=== PATIENT | female | born 1930 | race Caucasian/White ===

== ENCOUNTER 2016-11-08 07:24 | Inpatient (IN) | payer MEDICARE, OTHER ==
[~2016-11-08] VITALS: Ht 160 cm; Wt 67.9 kg
--- NOTE | ~2016-11-08 | HP ---
PATIENT'S NAME: CHRISTAL VERAS [facility] AGE: 86 Y [address] ROOM: [place] [address] LOCATION: GPCU ADMIT DATE: 11/08/2016 History & Physical DISCHARGE DATE: FAMILY PHYSICIAN: Casey Cordoba MD ATTENDING PHYSICIAN: Noé SAUCEDO DATE OF SERVICE: CHIEF COMPLAINT: Severe sepsis. HISTORY OF PRESENT ILLNESS: The patient is an 86-year-old female with a past medical history of stroke with right residual deficit, hypertension, hyperlipidemia, hard of hearing, and dementia who presents here from a skilled nursing with a fall. The patient was found on the floor today and was brought here to our emergency department for further evaluation. On initial evaluation, the patient is hard of hearing and was found to be somewhat confused. Initial workup in the ED shows elevated leukocytosis, possible right tibia distal fracture, normal CT head, elevated lactate, elevated creatinine, and possible UTI from the UA. On interview, the patient is alert and oriented x1. Not able to give adequate information. Most of the information was gathered from her son who was at bedside. He reports that the patient is a DNR/DNI and was found down today in the skilled nursing. He reports that at baseline, the patient is somewhat forgetful and uses a walker to ambulate. The son reports that she is more confused than usual. PAST MEDICAL HISTORY: Hypertension, hyperlipidemia, recent history of stroke with right residual deficits, dementia, and hard of hearing. PAST SURGICAL HISTORY: There is no surgical history. SOCIAL HISTORY: The patient lives in a skilled nursing. No history of drinking or smoking. FAMILY HISTORY: Unable to acquire due to the patient's poor mentation. MEDICATIONS: Currently being reconciled. REVIEW OF SYSTEMS: Unable to obtain review of systems as the patient has poor mentation. PATIENT'S NAME: CHRISTAL VERAS [facility] AGE: 86 Y [address] ROOM: [place] [address] LOCATION: GPCU ADMIT DATE: 11/08/2016 History & Physical DISCHARGE DATE: FAMILY PHYSICIAN: Casey Cordoba MD ATTENDING PHYSICIAN: Noé SAUCEDO PHYSICAL EXAMINATION: VITAL SIGNS: Temperature 96.4, blood pressure 133/63, heart rate of 95, respiratory rate of 17, and saturating 98% on room air. HEAD: Normocephalic, atraumatic. GENERAL APPEARANCE: The patient is alert and awake, appears in no acute distress. The patient follows simple commands. The patient is alert and oriented x1 only to self. NOSE: No nasal discharge. MOUTH: Oral dry mucosa. EARS: No ear discharge. CHEST: Clear to auscultation bilaterally. HEART: Regular rate and rhythm. No murmurs, rubs, or gallops. ABDOMEN: Soft, nontender, and nondistended. Bowel sounds present. SKIN: Warm to touch. MUSCULOSKELETAL: Right ankle swelling. DUCO POLISHER: The patient is alert and oriented x1, follows simple commands. Lower extremity weakness, bilateral, 3/5. Sensory is somewhat grossly intact. Right upper extremity strength 4/5. LABORATORY DATA: Lactate 5.1. Troponin 0.132. White blood cell count of 20, hemoglobin 14, platelets of 179. BUN of 41, creatinine of 2.4, sodium of 143, potassium of 4.4, CO2 of 21. Total bilirubin of 0.9. INR 1.04. UA shows positive leukocytosis with pyuria. Prolactin of 1.08. EKG shows sinus rhythm with somewhat peaked T-waves on V2 to V4. IMAGING DATA: CT lumbar shows no acute findings. CT thoracic shows no acute findings. CT cervical shows no acute findings. CT brain shows no acute findings. X-ray, no acute cardiopulmonary findings. Pelvis x-ray shows no acute fracture. Right ankle x-ray shows possible tibial fracture, distal. ASSESSMENT AND PLAN: 1. Severe sepsis. The patient is presenting with severe sepsis with elevated leukocytosis, elevated lactate, and a possible source of urine infection with pyuria, and also acute kidney injury. Etiology most likely is secondary to urinary tract infection with blood culture pending. The patient is currently receiving 30 mL/kg bolus. We will start 75 mL an hour of normal saline afterwards. We will start the patient on ceftriaxone. Urine culture and blood culture pending. 2. Urinary tract infection. Please see problem #1. 3. Acute encephalopathy. Etiology most likely secondary to urinary tract infection; however, the patient has also history of multiple strokes and PATIENT'S NAME: CHRISTAL VERAS [facility] AGE: 86 Y [address] ROOM: [place] [address] [facility] ADMIT DATE: 11/08/2016 History & Physical DISCHARGE DATE: FAMILY PHYSICIAN: Casey Cordoba MD ATTENDING PHYSICIAN: Noé SAUCEDO unable to get full neurological examination due to the patient's mentation. We will acquire MRI of the head to further rule out stroke. Continue aspirin and Lipitor. 4. Elevated troponin. Etiology most likely secondary to ylm-CA-qapvsyr elevation myocardial infarction, type 2. We will trend troponin. The EKG shows some peak T-waves concerning for ischemia. However, the patient denies any chest pain and family does not want any aggressive treatment including cardiac catheterization. We will trend troponin for now, treat the underlying etiology of acute kidney injury and urinary tract infection. We will acquire echocardiogram. We will treat the patient medically. 5. Possible distal right tibial fracture. We will get a CT of the right lower extremity. To be splinted in the emergency department. Depending on what we find, we will consider orthopedic consultation. 6. Lactic acidosis, most likely secondary to severe sepsis. We will trend lactate level. Greater than 70 minutes was spent on the patient admission. Greater than 50% of the time was spent on direct care. Discussion was made with RAN, his son. All questions were answered with satisfaction. The patient is a DNR/DNI and family wants no aggressive treatment. We will admit the patient for severe sepsis secondary to urinary tract infection. On admission, code status, DNR/DNI. NOÉ SAUCEDO MD DA/modl /[id number] D: T: HISTORY & PHYSICAL
--- NOTE | ~2016-11-08 | CON ---
PATIENT'S NAME: CHRISTAL VERAS [facility] AGE: 86 Y [address] ROOM: [place] [address] LOCATION: GPCU ADMIT DATE: 11/08/2016 Consultation DISCHARGE DATE: FAMILY PHYSICIAN: Casey Cordoba MD ATTENDING PHYSICIAN: Noé SAUCEDO REFERRING PHYSICIAN: RONAK REDDING MD CHIEF COMPLAINT: Right ankle pain. HISTORY OF PRESENT ILLNESS: This is an 86-year-old female who reportedly woke up on the floor at the nursing facility where she resides. Her daughter is present, states it was a nonwitnessed event. The patient is unable to tell us what may have precipitated this fall. The patient has a medical history of stroke with residual right side deficits and weakness. She is hard of hearing and suffers from hypertension, dyslipidemia, dementia. PAST SURGICAL HISTORY: Unable to obtain from the patient. MEDICATIONS: Reviewed. PHYSICAL EXAMINATION: VITAL SIGNS: Reviewed. GENERAL: The patient answers questions appropriately if you speak loud enough to where she can hear you. HEENT: Head is normocephalic, atraumatic. NECK: Supple. Trachea midline. EXTREMITIES: She moves bilateral upper extremities at the shoulder, wrist, and elbow without pain. She recently just got blood drawn and was complaining of pain from the needle stick of blood draws, however, that has resolved. She has pain to her right lower extremity at the ankle. There are no open wounds or injury. RADIOGRAPHS: X-ray showed nondisplaced ankle fracture involving the medial and lateral malleolus. IMPRESSION AND PLAN: She was placed in a splint with soft compartments. I am able to move both hips. She is able to move actively bilateral upper extremities and the left lower extremity without pain. There is no effusion about her knees. No tenderness around her ribs, thorax, and clavicles. She has had elevated leukocytosis with concerns for infection. I discussed with the patient and PATIENT'S NAME: CHRISTAL VERAS [facility] AGE: 86 Y [address] ROOM: [place] [address] LOCATION: GPCU ADMIT DATE: 11/08/2016 Consultation DISCHARGE DATE: FAMILY PHYSICIAN: Casey Cordoba MD ATTENDING PHYSICIAN: LEWIS,Dagmawe daughter at the bedside that as long she stays nonweightbearing we can place her in a CAM boot or cast to the right lower extremity. It will take 6 to 8 weeks for this fracture to heal. She will need assistance with ambulation, showers, and ADLs. Recommend aggressive Pulmonary care and DVT prevention with SCDs, KIMBERLEE esparza, incentive spirometry. She understands she will need assistance and nonweightbearing, okay to toe-touch with right lower extremity. I will see her in the office in two weeks with x-rays. NORIS BAJWA DO PH/modl /[id number] d: 11/09/16 0106 t: 11/12/16 1832, CONSULTATION REPORT
--- NOTE | ~2016-11-08 | ER ---
[facility] AGE: 86 Y [address] ROOM: [place] [address] LOCATION: GPCU ADMIT DATE: 11/08/2016 ER/Outpatient Report DISCHARGE DATE: FAMILY PHYSICIAN: Casey Cordoba MD ATTENDING PHYSICIAN: Noé RANGEL Time of Arrival: 0724 hours. Time of Evaluation: 0724 hours. IDENTIFICATION: An 86-year-old female. CHIEF COMPLAINT: Fall. HISTORY OF PRESENT ILLNESS: The patient is an 86-year-old female who resides at [facility]. She was found at 06:30 a.m. after an unwitnessed fall. She had pushed her Life Alert, but they were not certain what time she had fallen or how she was fallen. She is hard of hearing and seems somewhat confused, but has no history of dementia. She was complaining of back pain to the Paramedics. She did not speak much to me. She was fairly quiet and again seemed somewhat confused. She did agree that she had back pain. She denied pain anywhere else. ALLERGIES: NO KNOWN DRUG ALLERGIES. CURRENT MEDICATIONS: 1. Tylenol. 2. Amlodipine. 3. Atorvastatin. 4. Lisinopril. 5. Milk of magnesia. 6. Oyster Shell. 7. PreserVision. 8. Vitamin D. MEDICAL PROBLEMS: Hypertension, hyperlipidemia, previous stroke with right-sided weakness, osteoarthritis, chronic pain, and hard of hearing. PRIOR SURGERIES: Unknown. PATIENT'S NAME: R[facility]O [facility] AGE: 86 Y [address] ROOM: [place] [address] LOCATION: GPCU ADMIT DATE: 11/08/2016 ER/Outpatient Report DISCHARGE DATE: FAMILY PHYSICIAN: Casey Cordboa MD ATTENDING PHYSICIAN: Noé RANGEL SOCIAL HISTORY: The patient resides at [facility]. Tobacco use, denies. Alcohol use, denies. Drug use, denies. FAMILY HISTORY: Unable to obtain from the patient. REVIEW OF SYSTEMS: Unable to obtain from the patient. PHYSICAL EXAMINATION: VITAL SIGNS: Weight 64.9 kg, blood pressure 133/63, pulse 95, respirations 17, temperature 96.4, and saturations 98% on room air. GENERAL: An 86-year-old female, in no acute distress. HEENT: Head: Normocephalic and atraumatic. Ears: TMs translucent both ears. Eyes: Pupils equal and reactive to light and accommodation. Extraocular movements intact. Nose: Mucosa pink. No lesions. Mouth: No lesions. Mucous membranes are dry. Pharynx benign. NECK: Supple. No lymphadenopathy. No nuchal rigidity. She does have some tenderness to palpation of her cervical spine, no palpable deformities. Also, some tenderness to palpation of her lumbar spine, again no palpable deformities. LUNGS: Clear to auscultation. No rhonchi, wheezes, or rales. HEART: Regular rate and rhythm. No murmur, rub, or gallop. ABDOMEN: Bowel sounds present, soft, nondistended, and nontender. SKIN: [place], warm, and dry. No lesions or rashes noted. She does have some ecchymosis of her right ankle along with some soft tissue swelling. PELVIS: She has no tenderness to pelvic rock. UPPER EXTREMITIES: No bony tenderness noted. LOWER EXTREMITIES: Left lower extremity: Full range of motion. No deformities noted. Right lower extremity: She has some swelling of her right ankle laterally along with ecchymosis noted medially and she is tender to palpation. NEURO: The patient is alert. She is disoriented. Cranial nerves II through XII grossly intact. Motor strength: Upper extremities appear to be equal and 5/5. Lower extremities: Weakness in her right lower extremity greater than her left lower extremity. Sensation does appear to be intact. EMERGENCY DEPARTMENT COURSE: An IV was initiated, normal saline at 75 mL/h. LABORATORY DATA AND X-RAYS: EKG at 0729 hours showed normal sinus rhythm at 90 beats per minute, Q-waves noted in leads III and F, peaked T-waves noted in the septal leads, and this is changed when compared to prior EKG dated 11/25/2015. Procalcitonin PATIENT'S NAME: CHRISTAL VERAS [facility] AGE: 86 Y [address] ROOM: [place] [address] LOCATION: GPCU ADMIT DATE: 11/08/2016 ER/Outpatient Report DISCHARGE DATE: FAMILY PHYSICIAN: Casey Cordoba MD ATTENDING PHYSICIAN: Noé RANGEL elevated at 1.08. Sodium 143, potassium 4.4, chloride 108, CO2 of 21, BUN 41, creatinine elevated at 2.4 and this is elevated when compared to previous creatinine 1 year ago when it was 0.7, blood sugar 124, AST 56, magnesium 2.3, CPK 1464, CK-MB 38.9, troponin I 0.132. Lactate elevated at 5.1, 3-hour lactate elevated at 5.2. Repeat EKG at 0915 hours showed normal sinus rhythm with PACs, 91 beats per minute, peak T-waves in the septal leads, Q-waves in leads III and F, no significant change when compared to earlier EKG today. Repeat cardiac enzymes showed CPK 2846, CK-MB 75.4, and troponin I 0.142. UA cath; specific gravity 1.025, pH 5, 5 to 10 white blood cells, 2 to 5 red blood cells, 0 to 2 epithelial cells. Culture and sensitivity pending. Hemoglobin 14.7, hematocrit 43.9, platelets 179, and white blood cell count 20.1 with 88% neutrophils. INR 1.04. Blood cultures x2 have been drawn and those results are pending. Head CT showed no acute process, pending Radiology over-read. Cervical spine CT showed no acute findings. Thoracic spine CT showed degenerative changes, normal for age. Lumbar spine CT, no acute findings per Radiology. Chest x-ray, 1 view, no acute process, pending Radiology over-read. Pelvis x-ray, no acute fracture, pending Radiology over- read. X-ray of her right ankle revealed some soft tissue swelling and a subtle cortical irregularity in the distal tibia. CT scan of her right ankle reveals markedly osteopenic bones, incomplete nondisplaced fracture involving the anteromedial cortex of the distal metaphysis of the tibia, minimally displaced fracture at the medial malleolus of the distal tibia, comminuted nondisplaced fracture at the distal fibula, soft tissue swelling at the ankle per Dr. Murrieta, radiologist. IMPRESSION AND PLAN: 1. Ubt-LP-eukjslevc myocardial infarction. The patient does have hyperacute T-waves. In discussion with the patient's son, she is a DNR/DNI and they want conservative management, so she will be admitted by the hospitalist and have serial EKG and enzymes. 2. Sepsis. The patient meets severe sepsis criteria. Sepsis orders were initiated in the emergency room. Fluid bolus 30 mL/kg over 3 hours was given in the emergency room. The patient was given ceftriaxone 1 gram IV for suspected urinary tract infection as the source. 3-hour lactate has been ordered and Dr. Rangel evaluated the patient in the emergency room. 3. Urinary tract infection. IV Rocephin as noted above. 4. Acute confusion. I am not aware of the patient's baseline as far as her confusion. Head CT shows no acute findings. She will continue to be monitored. 5. Right distal tibia and fibula fracture, nondisplaced. The patient was placed in a posterior splint by myself in the emergency room and Dr. Lucas will provide consultation. The patient arrived to the emergency room at 0724 hours, remained in the emergency room until she was taken to PCU at 1235 hours. 50 minutes of critical care was provided in the emergency room and the patient was placed in a short leg posterior PATIENT'S NAME: CHRISTAL VERAS [facility] AGE: 86 Y [address] ROOM: [place] [address] LOCATION: GPCU ADMIT DATE: 11/08/2016 ER/Outpatient Report DISCHARGE DATE: FAMILY PHYSICIAN: Casey Cordoba MD ATTENDING PHYSICIAN: Noé RANGEL fiberglass splint by myself. CHAZ RIOS MD CAR/modl /[id number] d: 11/09/16 0006 t: 11/20/16 0833, OUTPATIENT REPORT
--- NOTE | ~2016-11-08 | CON ---
PATIENT'S NAME: CHRISTAL VERAS [facility] AGE: 86 Y [address] ROOM: [place] [address] LOCATION: GPCU ADMIT DATE: 11/08/2016 Consultation DISCHARGE DATE: FAMILY PHYSICIAN: Casey Cordoba MD ATTENDING PHYSICIAN: Noé SAUCEDO DATE OF CONSULTATION: 11/09/2016 REFERRING PHYSICIAN: RONAK REDDING MD TIME: 3:40 p.m. CHIEF COMPLAINT: Stroke. HISTORY OF PRESENT ILLNESS: This is an 86-year-old female, who lives in an assisted living facility. She has a prior medical history of stroke with some right-sided weakness. Other history includes hypertension, hyperlipidemia, and dementia. The patient was found on the floor today at the shelter and was brought to our emergency department for further evaluation. On initial evaluation, the patient is hard- of-hearing and confused. She was worked up in the ED and noted to have elevated leukocytosis and a possible right tibia distal fracture. The CT of her head was normal at that time. She had an elevated lactate and elevated creatinine and a possible UTI. At that time, an MRI was ordered of her head which did show a left caudate nucleus small area of diffusion-weighted imaging. 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 The patient's information was gathered from the chart, the patient, and her grandson who is at the bedside. PAST MEDICAL HISTORY: 1. Hypertension. 2. Hyperlipidemia. 3. Stroke with right residual deficits. 4. Dementia. 5. Hmgb-eo-xgujcqj. PAST SURGICAL HISTORY: No surgical history. SOCIAL HISTORY: The patient lives in a shelter. She does not smoke or drink. FAMILY HISTORY: The patient is unable to remember what her parents from except they [facility] 86 Y [address] ROOM: [place] [address] LOCATION: GPCU ADMIT DATE: 11/08/2016 Consultation DISCHARGE DATE: FAMILY PHYSICIAN: Casey Cordoab MD ATTENDING PHYSICIAN: Noé SAUCEDO from old age. MEDICATIONS: Medications are on the MAR and were reviewed by me. Of note, the patient is not on any antithrombotic therapy. REVIEW OF SYSTEMS: All systems were reviewed and are negative except as mentioned in the HPI. PHYSICAL EXAMINATION: VITAL SIGNS: Temperature 96.4, blood pressure 136/60, heart rate of 94, respiratory rate of 16, saturating 98% on room air. HEAD: Normocephalic and atraumatic. GENERAL APPEARANCE: The patient is alert, awake, and cooperative. She is in no acute distress. CHEST: Clear to auscultation bilaterally. HEART: Regular rate and rhythm with no murmurs, rubs, or gallops. She does have an occasional PVC. ABDOMEN: Soft, nontender, and nondistended. NEUROLOGICAL: The patient is oriented to self and place. She does follow commands. She is slps-md-qakxgbh, so instructions may need to be repeated. Her right leg is cast, so it is difficult to elicit strength in that right leg. However, her left leg seems strong. Her bilateral upper extremities are strong. I did see the patient get up with physical therapy and her gait was quite equal and wide based. As far as her stroke scale goes, level of consciousness 1A - 0, 1B - 0, 1C - 0, 2. Best gaze, normal - 0, 3. Visual - 0, 4. Facial palsy - 0, motor arm left - 0, motor arm right - 0, motor leg left - 0, motor leg right - 0, limb ataxia - 0, sensory - 0, best language - 0, dysarthria - 0, and extinction and inattention - 0. There is some slight dysmetria with her right hand. DIAGNOSTIC DATA: Her MRI shows a 1.5 cm acute ischemic infarct in the left caudate nucleus. There is a chronic left thalamic hemorrhage infarct with hemosiderin staining, and mild encephalomalacia. Some chronic brain atrophy. IMPRESSION AND PLAN: This is an 86-year-old who presented with a septic picture, whom we incidentally found a stroke on her MRI. I am uncertain as to why she was not on any antithrombotic after having a previous stroke, but suspect the hemorrhage in her thalamic area might explain that. In any event, it is safe to put her on 81 mg of aspirin. She did refuse to have her LDL drawn, but we can place the patient on atorvastatin 80. Her echocardiogram did show a left atrium that is mildly enlarged. Carotid studies were not ordered on this patient. It was discussed with the family, and even though they may find some PATIENT'S NAME: CHRISTAL VERAS [facility] AGE: 86 Y [address] ROOM: [id number] [place] [address] LOCATION: [facility] ADMIT DATE: 11/08/2016 Consultation DISCHARGE DATE: FAMILY PHYSICIAN: Casey Cordoba MD ATTENDING PHYSICIAN: Noé SAUCEDO carotid disease, she would not want to have surgery. Therefore, we will treat with aspirin 81 mg. the patient is already working with Physical Therapy and Occupational Therapy, and should have a very good recovery from this. We would like to thank you for the opportunity to participate in this patient's care. The plan of care was discussed with the hospitalist team. The plan of care was also discussed with the patient and her grandson and questions were answered appropriately. The time of this encounter with Dr. Baig and examining the chart and the patient was 30 minutes. MORGAN ANAYA APRN FOR VIRGILIO BAIG MD PP/bakaril /[id number] ATTESTATION: I have seen and evaluated the patient with GWEN Brian. This includes taking history and perfomring physical exam via telemedicine cart. We have discussed the assessment and plan as outlined above, and discussed that plan in detail with the patient. d: 11/09/16 2321 t: 11/27/16 0924, CONSULTATION REPORT
--- NOTE | ~2016-11-08 | ECHO ---
Transthoracic Echocardiography Report (TTE) Demographics Patient Name CHRISTAL VERAS Date of Study 11/10/2016 Patient Number [id number] Visit Number [id number] Date of 1930 Room Number G6315 Gender Female Number Age 86 year(s) Referring Trung Whyte Blood Bank Worker Charlotte Razo RVT, Physician MD MELANIE Umanzor Physician Interpreting Trung Whyte Oil Distributor Tender Physician MD Supervising Ordering Trung Whyte MD/MLP Physician MD Nurse Stress Director Of [employer] Conclusions Summary Limited echo for bubble study. There is no evidence of a patent foramen ovale by color Doppler or saline bubble study. Procedure Type of Study TTE procedure:Echo Limited w/ Contrast. Procedure Date Date: 11/10/2016 Start: 10:59 AM Study Location: Inpatient Portable Technical Quality: Adequate visualization Indications:Elevated Troponin. Appropriate Use Criteria: 4 Patient Status: Routine Contrast Medium: Bubble Study. Rhythm: NSR HR: 71 bpm BP: 184/110 mmHg Contractility Score LV regional wall motion:(0-Non visualized 1-Normal 2-Hypokinesis 3-Akinesis 4-Dyskinesis 5-Aneurysm) Signature dtt: Isabell Nino dtd: 11/10/16 1059 Physician Self Edit
--- NOTE | ~2016-11-08 | ECHO ---
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 Summary The estimated left ventricular ejection fraction is 70-75%. Mild concentric left ventricular hypertrophy. Diastolic assessment reveals Grade I diastolic dysfunction. Elevated velocities noted in left ventricle mid cavity. The left atrium is moderately dilated by LA volume index measurement. Mild mitral regurgitation by color Doppler. Moderate mitral annular calcification. Moderate tricuspid regurgitation by color Doppler. There is severe pulmonary hypertension. The pulmonary pressure (RVSP) is 62 mmHg. The ascending aorta appears mildly dilated. The maximum diameter measures 3.7 cm. Procedure Type of Study TTE procedure:2D Echocardiogram. Procedure Date Date: 11/08/2016 Start: 04:05 PM Study Location: Inpatient Portable Technical Quality: Adequate visualization Indications:Elevated Troponin. Appropriate Use Criteria: 9 Patient Status: Routine Height: 65 inches HR: 85 bpm BP: 160/80 mmHg M-Mode/2D Measurements LV Diastolic Dimension: 2.81 cm LV Systolic Dimension: 1.11 cm LV Septum Diastolic: 1.13 cm LV PW Diastolic: 1.26 cm Cardiac Output: 8 l/min LA Dimension: 2.4 cm RV Diastolic Dimension: 2.8 cm LA volume: 43 ml LVOT: 1.8 cm LVOT VTI: 37 cm RV Base: 2.74 cm LV Stroke volume: 94.11 ml RV Mid: 1.77 cm RV Length: 5.94 cm TAPSE: 3.17 cm TDI-S': 16.1 cm/s Doppler Measurements AV Peak Velocity: 1.81 m/s MV Peak E-Wave: 1.03 m/s AV Peak Gradient: 13.1 mmHg MV Peak A-Wave: 1.33 m/s AV Mean Gradient: 11 mmHg MV E/A Ratio: 0.77 LVOT Peak Velocity: 1.74 m/s MV P1/2t: 88 msec TR Gradient:51.84 mmHg PV Peak Velocity: 1.08 m/s Estimated RAP:8 mmHg PV Peak Gradient: 4.67 mmHg Estimated RVSP: 60 mmHg Estimated PASP: 59.84 mmHg Findings Left Ventricle Mild concentric left ventricular hypertrophy. Diastolic assessment reveals Grade I diastolic dysfunction. Hyperdynamic LV systolic performance. Elevated velocities noted left ventricle mid cavity. Right Ventricle Normal right ventricle structure and function. Left Atrium The left atrium is moderately dilated by LA volume index measurement. Right Atrium Normal right atrial size. Mitral Valve Mild mitral regurgitation by color Doppler. Moderate mitral annular calcification. Aortic Valve The aortic valve is moderately sclerotic. Tricuspid Valve Moderate tricuspid regurgitation by color Doppler. There is severe pulmonary hypertension. The pulmonary pressure (RVSP) is 62mmHg. Pulmonic Valve Normal pulmonic valve structure and function. Pericardial Effusion No evidence of pericardial effusion. Miscellaneous The ascending aorta appears mildly dilated. The maximum diameter measures 3.7 cm. Pleural Effusion No evidence of pleural effusion. Contractility Score LV regional wall motion:(0-Non visualized 1-Normal 2-Hypokinesis 3-Akinesis 4-Dyskinesis 5-Aneurysm) Signature dtt: Rizwan Bishop dtd: 11/08/16 4830 Physician Self Edit
--- NOTE | ~2016-11-08 | ENPV ---
Carotid Duplex Study Demographics Patient Name CHRISTAL VERAS Date of Study 11/09/2016 Patient Number [id number] Gender Female Date of 1930 Age 86 Visit Number [id number] Height 65 Accession Number [id number] Weight Room Number G6315 BSA BMI Referring Adalid Nicolas MD Interpreting Mark Stuart MD Physician Juan Carlos Umanzor Physician Physician Ordering Juan Carlos Umanzor Motel Keeper Physician Director Of Psychology Teddy [facility], [facility] Conclusions Summary The right internal carotid artery has mild, 1-39%, plaque and stenosis. The left internal carotid artery has mild, 1-39%, plaque and stenosis. The bilateral vertebral arteries are patent and antegrade. The bilateral subclavian arteries are patent and biphasic. Procedure Type of Study: Cerebral:Carotid, Carotid Doppler Bilateral. Indications for Study:Stroke. Appropriate Use Criteria:9 Blood Pressure:Right arm 140/63 mmHg.Left arm 142/69 mmHg. Patient Status:Routine. Study Location:Inpatient Portable. Technical Quality:Adequate visualization. Velocities are measured in cm/s ; Diameters are measured in cm Carotid Right Measurements Carotid Left Measurements + +--------+--------+ + + + +--------+ --------+ + + !Location !PSV !EDV !Angle !%Stenosis ! !Location !PSV ! EDV !Angle !%Stenosis ! + +--------+--------+ + + + +--------+ --------+ + + !Prox CCA !97 !22 !46 ! ! !Prox CCA !87 ! 18 !60 ! ! + +--------+--------+ + + + +--------+ --------+ + + !Dist CCA !115 !18 !60 ! ! !Dist CCA !76 ! 18 !60 ! ! + +--------+--------+ + + + +--------+ --------+ + + !Prox ICA !47 !16 !60 ! ! !Prox ICA !55 ! 21 !56 ! ! + +--------+--------+ + + + +--------+ --------+ + + !Dist ICA !58 !21 !56 ! ! !Dist ICA !59 ! 19 !52 ! ! + +--------+--------+ + + + +--------+ --------+ + + !Prox ECA !87 ! !44 ! ! !Prox ECA !128 ! !56 ! ! + +--------+--------+ + + + +--------+ --------+ + + !Vertebral !42 ! !46 ! ! !Vertebral !74 ! !58 ! ! + +--------+--------+ + + + +--------+ --------+ + + !Subclavian !97 ! !46 ! ! !Subclavian !108 ! !46 ! ! + +--------+--------+ + + + +--------+ --------+ + + - Add'l Measurements:ICAPSV/CCAPSV 0.6.ICAEDV/CCAEDV 0.94. - Add'l Measurements:ICAPS V/CCAPSV 0.68.ICAEDV/CCAEDV 1.14. Signature dtt: CHERI MAGAÑA: 11/09/16 0851 Physician Self Edit
--- NOTE | ~2016-11-08 | CON ---
PATIENT'S NAME: CHRISTAL VERAS [facility] AGE: 86 Y [address] ROOM: G6315 [place], [place] [address] LOCATION: [facility] ADMIT DATE: 11/08/2016 Consultation DISCHARGE DATE: FAMILY PHYSICIAN: Casey Cordoba MD ATTENDING PHYSICIAN: Noé SAUCEDO DATE OF CONSULTATION: 11/09/2016 REFERRING PHYSICIAN: RONAK REDDING MD patient of Dr. Saab. Dear Dr. Saab: Thank you for asking me to see Mrs. Veras, who is 86-year-old female patient, admitted with a syncopal spell. According to the patient, she was in her usual state of health on 11/08/2016 morning. She lives in an assisted living facility for the past 3 years. Usually, she gets around reasonably well on her walker. She is able to walk to the dining room, and she tries to walk as much as possible and has been doing reasonably well recently. Yesterday, she apparently fainted when she was up to the bathroom and was found lying on the floor unresponsive. After she came to, she was transferred to the emergency room. There were no clear associated features of seizures, such as loss of memory, tongue biting, bladder or bowel incontinence, or headache. She thinks she was out for a few minutes at the most. She has not had any chest pains or shortness of breath. When she tries to walk a little bit more, she does notice some tiredness. She is in Functional Class II with no paroxysmal nocturnal dyspnea or orthopnea. She has not had any chest pain. There are no palpitations or ankle swelling. She has no history of dizziness or lightheadedness. She was somewhat confused when she came up here. The patient has history of hypertension, elevated cholesterol. Denies tobacco abuse. She is not a diabetic, and she has significant family history of premature coronary artery disease. She denies [place] or angina or nitroglycerin use. There is no history of rheumatic fever, heart murmur, heart failure, dilated or enlarged heart or any diagnosed cardiac arrhythmia. MEDICATIONS: 1. Magnesium hydroxide 400 mg per 5 mL p.r.n. constipation. 2. Calcium carbonate. 3. Vitamin C, vitamin D, vitamin E, and vitamin F. 4. Atorvastatin 20 mg a day. 5. Lisinopril 20 mg a day. PATIENT'S NAME: GABBY VERASONNDavid Nevarez [facility] AGE: 86 Y [address] ROOM: [place] [id number] LOCATION: [facility]PCU ADMIT DATE: 11/08/2016 Consultation DISCHARGE DATE: FAMILY PHYSICIAN: Casey Cordoba MD ATTENDING PHYSICIAN: Noé SAUCEDO 6. Vitamin D3. 7. Acetaminophen 325 mg a day. 8. Amlodipine besylate 2.5 mg a day. ALLERGIES: NO KNOWN DRUG ALLERGIES. PAST MEDICAL HISTORY: 1. 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 She has had no recurrences. 2. Appendectomy. 3. Some tendons in the right toe removed. 4. Bilateral cataract surgery. 5. Hardness of hearing. 6. Arthritis. SOCIAL HISTORY: The patient lives at an assisted living. Her appetite and weight are stable. Her sleep is fair. She denies having any alcohol intake. FAMILY HISTORY: Some positive changes but not sure given her mental status. REVIEW OF SYSTEMS: A 12-point review of systems reveals the following positives: 1. Migraines. 2. Reading glasses. 3. History of pleurisy. 4. DJD. 5. Anxiety and depression. PHYSICAL EXAMINATION: VITAL SIGNS: Her blood pressure is 170/80, heart rate is in the 80s and regular, respirations 18, afebrile. HEENT: Normal. NECK: Supple with no JVD, thyromegaly, lymphadenopathy, or carotid bruit. PMI is not well located. First and second heart sounds are regular with frequent PACs. CHEST: Clear to auscultation. ABDOMEN: Soft. EXTREMITIES: Reveal no edema. ASSESSMENT: An 86-year-old female patient with syncopal spell. She has prior history of right-sided weakness secondary to prior CVA. She also has history of PATIENT'S NAME: RITO [facility] AGE: 86 Y [address] ROOM: [address] [address] LOCATION: GPCU ADMIT DATE: 11/08/2016 Consultation DISCHARGE DATE: FAMILY PHYSICIAN: Casey Cordoba MD ATTENDING PHYSICIAN: LEWIS,Dagmawe hypertension, hypercholesterolemia, and admitted with fainting. In the process, she has ended up fracturing her tibia and her right leg. She has an Unna boot on. RECOMMENDATIONS: 1. Her EKG does look abnormal. We will further clarify downward trend of her troponin. 2. We will have them check her echo again with a bubble study to see if there is any significant interatrial shunt. Again, I appreciate this opportunity to participate in the care of Mrs. Veras. MD CIERRA CARBAJAL/vitaliy /[id number] d: 11/09/16 2244 t: 11/10/16 1030, CONSULTATION REPORT
--- NOTE | ~2016-11-08 | DS ---
PATIENT'S NAME: CHRISTAL VERAS [facility] AGE: 86 Y [address] ROOM: G6315 [place], [place] [address] LOCATION: GPCU ADMIT DATE: 11/08/2016 Discharge Summary DISCHARGE DATE: 11/14/2016 FAMILY PHYSICIAN: Casey Cordoba MD ATTENDING PHYSICIAN: Noé Rangel FINAL DIAGNOSES: 1. Acute ischemic cerebrovascular accident in the left caudate nucleus. 2. Lgd-TF-flkdxcmxk myocardial infarction. 3. Lactic acidosis secondary to lying on the floor. 4. Leukocytosis. 5. Essential hypertension. 6. Right ankle fracture. 7. Metabolic acidosis. 8. Acute kidney injury. REASON FOR ADMISSION: Please see the H and P, but in short, the patient was found lying on the floor with a right ankle fracture and was admitted for further evaluation. LABORATORY DATA: On admission, sodium was 143, got as high as 146 on the 13th, most prior to discharge 140. Potassium on admission was 4.4, most prior to discharge 3.9. CO2 on admission was 21, discharge 27. BUN on admission was 41, discharge 17. Creatinine on admission was 2.5, discharge 0.5. On admission, alkaline phosphatase was 60, AST was 56, ALT 31. Magnesium was 2.3. Phosphorus on admission was 2, on the 13 was 1.8. CPK on admission was 1464, got as high as 4759, and then dropped to 3804. Troponin on admission was 0.132, jose f to 0.228, and the last value checked was 0.081. ProBNP on the 13 was 1003. White blood cell [place] admission [place] [address] with a left shift. Hemoglobin was 14.7, hematocrit 43.9, platelet count 179. Just prior to discharge white blood cell count was 9 with a hemoglobin of 12.4, hematocrit 36.8, and platelet count 142. Procalcitonin on admission was 1.08, it did drop to 0.76. Urinalysis on admission showed 100 protein, 5 to 10 whites, 2 to 5 reds. MICROBIOLOGY DATA: Urine culture and blood culture returned negative. RADIOLOGY DATA: Right ankle fracture done in the emergency room showed a nondisplaced distal tibia fracture. I did recommend a CT scan of the lower ankle that was done and it did show incomplete nondisplaced fracture involving the anteromedial cortex of the distal metaphysis of the tibia. She had a mildly displaced fracture of the medial malleolus with the distal tibia. She had a comminuted nondisplaced fracture of the distal fibula. She had significant osteopenia. Cervical spine CT scan done on admission did not show any acute changes. CT scan of the brain done on admission because of the fall PATIENT'S NAME: CHRISTAL VERAS [facility] AGE: 86 Y [address] ROOM: G[address] [place], [place] [address] LOCATION: GPCU ADMIT DATE: 11/08/2016 Discharge Summary DISCHARGE DATE: 11/14/2016 FAMILY PHYSICIAN: Casey Cordoba MD ATTENDING PHYSICIAN: Noé Rangel did not show any abnormality. Lumbar spine x-ray did not show acute finding. Thoracic spine and CT scan did not show acute findings. MRI of the brain did in fact show that she had a small acute ischemic infarct in the left caudate nucleus. CT scan of the abdomen and pelvis on the did not show any significant abnormalities. She had a tiny nodule in the left lower lobe 3 mm. Spiral-cut PE protocol done. Did not show any acute pulmonary embolism. She had multiple tiny nodules in the lung periphery. They did recommend a 6-month follow up. CARDIOVASCULAR DATA: Echocardiogram done at admission showed her ejection fraction to be 70 to 75%. She had mild concentric LVH. She had grade 1 diastolic dysfunction, moderately dilated left atrium, severe pulmonary hypertension with 62 mmHg. Carotid Doppler did not show any significant internal carotid disease. A limited echo repeated on the with a bubble study was negative. HOSPITAL COURSE: The patient was admitted after having a fall resulting in both a tibia and fibula fracture. She was seen in consultation by Dr. Antione Lucas and it was felt that these could be managed nonsurgically and she was then put in a boot CAM walker with limited weightbearing. A CT scan of her abdomen and pelvis was done because she did complain of pain. There was no evidence of obstruction. Her white blood cell count was elevated on admission. She was empirically started on IV antibiotics, but when her cultures returned negative this was discontinued. Dr. Nino was asked to see her from a Cardiology standpoint because of the elevated troponins. I was concerned whether this was a true non-STEMI or whether it was due to elevation from lying on the floor. Her blood pressures were elevated in the first 24 hours and while we were working her up for a stroke, she was allowed to have some permissive hypertension. This MRI did in fact show that she had a stroke. An echocardiogram was done with a bubble study to rule out paradoxical emboli, was negative. A spiral-cut CT scan was done and negative. It was felt that she did have a non-STEMI. The recommendation for Cardiology was to do further testing which the patient deferred. The decision was made to treat medically. After 48 hours when all cultures were negative, the Rocephin that was started on admission was stopped. We did monitor her blood pressures. They were elevated. Adjustments in her medications were made. Her electrolytes were monitored and replaced as necessary. It was felt that she would have an aspirin a day. There was some talk about where she would return, she was from an assisted living and there was concern about her safety since she would not be able to bear any much weight. We did have a discussion with her and her family and the decision was made that she would go to a skilled facility. She was monitored over the weekend. Her medications were adjusted. It was felt that she was stable for discharge to [facility]. DISCHARGE INSTRUCTIONS: She is to follow up with Dr. Lucas in [facility] in PATIENT'S NAME: CHRISTAL VERAS [facility] AGE: 86 Y [address] ROOM: [place] [address] LOCATION: GPCU ADMIT DATE: 11/08/2016 Discharge Summary DISCHARGE DATE: 11/14/2016 FAMILY PHYSICIAN: Casey Cordoba MD ATTENDING PHYSICIAN: Noé Rangel 2 weeks. She is to see Dr. Ramy Cordoba in 7 to 10 days. No known medical allergies. Regular diet. She is toe-touch or no weightbearing on the right. She is to wear the CAM boot walker at all times. Orourke was removed. MEDICATIONS: 1. Norvasc 5 mg twice daily. 2. Aspirin 81 mg daily. 3. Lipitor 20 mg daily. 4. Os-Scott 1000 mg daily. 5. Prinivil 20 mg daily. Hold it for systolic blood pressure less than 110. 6. Lopressor 50 mg twice daily. 7. MiraLAX 17 g twice daily. Hold for loose stools. 8. Tylenol 500 mg every 6 hours as needed. 9. Tylenol 650 mg every 4 hours as needed. 10. Milk of magnesia 30 mL as needed for constipation. 11. PreserVision 1 tablet daily. 12. Vitamin D 2000 units twice daily. PROGNOSIS: Overall prognosis at discharge was good. I did speak with her primary care provider, Dr. Cordoba, regarding this. LAZARA WEINSTEIN MD LAW/modl /[id number] d: 11/15/162 t: 11/23/16 1933, DISCHARGE SUMMARY
--- NOTE | ~2016-11-08 | CON ---
PATIENT'S NAME: CHRISTAL VERAS [facility] AGE: 86 Y [address] ROOM: [place] [address] LOCATION: GPCU ADMIT DATE: 11/08/2016 Consultation DISCHARGE DATE: FAMILY PHYSICIAN: Casey Cordoba MD ATTENDING PHYSICIAN: Noé RANGEL REFERRING PHYSICIAN: RONAK REDDING MD A consult for Dr. Rangel. HISTORY OF PRESENT ILLNESS: This 86-year-old lady is referred for rehab evaluation, admitted on 11/08 after being found on the floor in her retirement place. She was confused and complained of pain in the right lower extremity. Past history of significance: 1. Right weakness, mild, still residual from previous stroke. 2. Hypertension. 3. Dyslipidemia. 4. She is also hard of hearing. At the present time, the right lower extremity is wrapped in extensive Gautam wrapping, diagnosed as possible fracture, nondisplaced, of the right tibia on the right side distal part. PHYSICAL EXAMINATION: GENERAL: Otherwise, alert, oriented if she can hear you. VITAL SIGNS: Blood pressure 161/70, temperature 98.1, pulse 81, respiration rate 20. She is 5 feet 3 inches tall and weighs 66.4 kg. NEUROLOGIC: She can move all the upper extremities. She is avoiding moving right lower extremity secondary to pain, especially the foot. She is able to comprehend and express without difficulty. Her voice is clear and not wet. No facial droop. Tongue and soft palate are moving symmetrical. Can swallow without difficulty. She is continent of her bowel and bladder for her age. Deep tender reflexes present and equal throughout. 1+. MEDICATIONS: 1. Os-Scott. 2. Rocephin. 3. Milk of magnesia. 4. Albuterol sulfate. 5. Heparin. 6. Protonix. [facility] 86 Y [address] ROOM: [place] [address] LOCATION: GPCU ADMIT DATE: 11/08/2016 Consultation DISCHARGE DATE: FAMILY PHYSICIAN: Casey Cordoba MD ATTENDING PHYSICIAN: Noé RANGEL 7. Lipitor. 8. Aspirin. 9. Tylenol. 10. NaCl. ASSESSMENT AND PLAN: We will continue on PT, OT, and speech already initiated, and I will follow on her closely. If she is unable to go back, we will re-evaluate for possible rehab admit. Thank you for this referral. All the above was explained to her. She verbalized understanding and agreement. MD LUCIA SANDERS/vitaliy /[id number] d: 11/09/16 1506 t: 11/09/16 1650, CONSULTATION REPORT
[~2016-11-08 07:24] MED LIST changes: -NORVASC5 MG PO
[2016-11-08 07:51] LABS: BASOPHIL % 0.1 %; HEMATOCRIT 43.9 % (30.0-46.0); HEMOGLOBIN 14.7 g/dL (10.0-15.0); IMMATURE GRANULOCYTE # 0.1 K/uL (0.0-0.3); IMMATURE GRANULOCYTE % 0.4 %; LYMPHOCYTE # 0.7 K/uL (0.8-4.0); LYMPHOCYTE % 3.4 %; MCH 31.2 pg (27.0-34.0); MCHC 33.5 gm/dL (32.0-36.5); MCV 93.2 fl (83.0-98.0); MONOCYTE # 1.5 K/uL (0.0-1.0); MONOCYTE % 7.5 %; MPV 12.9 fl (9.4-12.4); NEUTROPHIL # (ANC) 17.8 K/uL (1.8-7.8); NEUTROPHIL % 88.6 %; NRBC % 0 /100WBC (0-0.00); PLATELET COUNT 179 K/uL (150-450); RBC 4.71 M/uL (3.00-5.00); RDW-CV 12.9 % (11.9-14.6)
[2016-11-08 07:53] LABS: WBC 20.1 K/uL (4.0-11.0)
[2016-11-08 08:00] LABS: INR - (THERAPEUTIC) 1.04 (0.92-1.07); PROTIME 10.9 SECONDS (9.8-11.4); PTT 23 SECONDS (25-32)
[2016-11-08 08:11] LABS: ALBUMIN 4.5 gm/dL (3.5-5.0); ANION GAP 18.4 (10.0-19.0); CALCIUM 10.2 mg/dL (8.5-10.5); CREATININE 2.4 mg/dL (0.5-1.1); MAGNESIUM 2.3 mg/dL (1.8-2.6); POTASSIUM 4.4 mMol/L (3.7-5.1); TOTAL BILIRUBIN 0.9 mg/dL (0.0-1.5); TOTAL PROTEIN 7.9 g/dL (6.0-8.4)
[2016-11-08 09:03] LABS: BILIRUBIN URINE NEGATIVE (NEGATIVE); BLOOD URINE 250 /UL (NEGATIVE); COLOR URINE YELLOW (YELLOW); GLUCOSE URINE NEGATIVE (NEGATIVE); KETONE URINE NEGATIVE (NEGATIVE); LEUKOCYTES URINE 25 /UL (NEGATIVE); NITRITE URINE NEGATIVE (NEGATIVE); PROTEIN URINE 100 mg/dL (NEGATIVE); SPEC GRAVITY URINE 1.025 (1.003-1.035); TURBIDITY URINE 2+ (CLEAR); UROBILINOGEN URINE NORMAL (NORMAL)
[2016-11-08 09:12] LABS: EPITHELIAL URINE 0-2 #/HPF (NEGATIVE); GRANULAR CASTS URINE 0-2 #/LPF (NEGATIVE)
[2016-11-08 09:13] LABS: BACTERIA URINE MANY (NEGATIVE); MUCUS URINE 2+ (NEGATIVE)
[2016-11-08] MEDS ORDERED: NORVASC5 MG PO (14:12)
--- NOTE | 2016-11-08 14:23 | NUR ---
Pt is 86 yo female admitted this afternoon from the ER after she fell this am in her apartment at [facility]. She has a history of CVA w/right sided weakness. patient is very hard of hearing. son is helpful. patient seems fairly alert and oriented just hard of hearing. IV is infusing in left antecubital space without erythema or edema noted at the site. education is given as documented. patient denies questions. son denies questions. pneumatics is on left calf. splint w/alison wrap is on right lower leg. red socks on. fall bracelet on. call light is within reach. patient denies needs at this time. report is given to GRACIELA Nieto.
[2016-11-08 14:28] LABS: BICARBONATE 22.8 mmol/L (18.0-23.0); PCO2 32 mmHg (35-45); PO2 73 mmHg (80-90)
[2016-11-08 18:50] LABS: BICARBONATE 20.9 mmol/L (18.0-23.0); PCO2 28 mmHg (35-45); PO2 80 mmHg (80-90)
--- NOTE | 2016-11-09 05:26 | NUR ---
Significant events: Pt A/Ox3. VSS. No complaints of pain. On RA. WB as tolerated, toe touch to R) leg. CAM boot on when up. NS at 75cc/hr, IV antibiotics. Pt tearful. Pt is refusing almost everything. Will allow vitals and PO and IV medications. Will not let you do anything that involves poking her, including lab draws, accuchecks, SQ meds. Stroke scale completed with a score of 4, bedside swallow test passed. Neuro to see. Slept well. Orourke in place. Continue to monitor.
--- NOTE | 2016-11-09 08:21 | NUR ---
ROUTINE CONSULT FOR STROKE DIET ED NOTED. DIET ED NOT APPROPRIATE PT LIVE AT [facility] AND ADVANCED AGE. WILL ASSIST NEEDED.
--- NOTE | 2016-11-09 12:19 | NUR ---
1210 Introduced self and CM role to Janet. Janet tells me that she lives at [facility] in [place] and plans to return there when she is able to do so. States that her son or one of her kids should be able to come and pick her up when she is ready to return back to [facility]. Janet states that she gets around well at the [facility] and she uses a FWW. She tells me that she does her own medications and plans to continue to do them when she returns. Her PCP is . She denies any other questions, needs or concerns. Plan return back to [facility]. Information from her stay thus far was gathered and faxed over to [facility] with a note on the letter stating if they had any concerns about her coming back to please let me know NAVI. Also if they wanted to come and eval her for return they would need to do so later today or morning as she could return as soon as Monday. CM to continue to follow and assist. Plan [facility].
[2016-11-09 14:23] LABS: HEMATOCRIT 37.8 % (30.0-46.0); HEMOGLOBIN 12.5 g/dL (10.0-15.0); MCH 30.8 pg (27.0-34.0); MCHC 33.1 gm/dL (32.0-36.5); MCV 93.1 fl (83.0-98.0); MPV 12.6 fl (9.4-12.4); PLATELET COUNT 116 K/uL (150-450); RBC 4.06 M/uL (3.00-5.00); RDW-CV 13.2 % (11.9-14.6); WBC 13.3 K/uL (4.0-11.0)
[2016-11-09 14:38] LABS: ALBUMIN 3.4 gm/dL (3.5-5.0); BLOOD UREA NITROGEN 40 mg/dL (6-24); CALCIUM 8.4 mg/dL (8.5-10.5); CHLORIDE 115 mMol/L (96-110); CO2 23 mMol/L (22-32); MAGNESIUM 2.3 mg/dL (1.8-2.6); POTASSIUM 3.8 mMol/L (3.7-5.1)
[2016-11-09 14:40] LABS: ANION GAP 11.8 (10.0-19.0); CREATININE 0.8 mg/dL (0.5-1.1); ESTIMATED GFR (MDRD EQUATION) > 60; SODIUM 146 mMol/L (135-145)
[2016-11-09 14:55] LABS: ABSOLUTE NEUTROPHIL CT (ANC) 11.3 K/uL (1.8-7.8); LYMPHOCYTE # 1.2 K/uL (0.8-4.0); LYMPHOCYTE % 9 %; MONOCYTE # 0.8 K/uL (0.0-1.0); SEGMENTED NEUTROPHIL # 11.3 K/uL (1.8-7.8); SEGMENTED NEUTROPHIL % 85 %
[2016-11-09 14:58] LABS: CPK 3804 IU/L (21-215)
--- NOTE | 2016-11-09 19:52 | NUR ---
Significant Event: Alert and oriented X 3. Room air. SBP 140's, 150's, and 170's. HR 70's and 80's. Splint and alison wrap to left lower leg. Dressing clean dry and intact. Up in recliner with Cam boot on, ttbw. 2 assist gait belt and walker. Peripheral IV to left antecubital, normal saline infusing at 75 ml/hr. Pleasant and cooperative with cares. Follow up:
--- NOTE | 2016-11-10 05:52 | NUR ---
Significant Event: Patient is alert, disoriented to place and situation. On 3rd assessment, patient kept referring to herself in the 3rd person regarding her leg fracture. She also kept thinking she was in [place]. Reorients well but is very forgetful. BP on 3rd assessment was 186/88; patient refused to have BP rechecked on other arm. Otherwise, VSS, on room air. Denies any pain. Orourke in place with good UOP. Patient is toe-touch weight bearing on that right leg and is supposed to wear boot (in room) when out of bed. Follow up: EKG this AM and echo with bubble study.
[2016-11-10 07:59] LABS: ALBUMIN 3.1 gm/dL (3.5-5.0); ALK PHOS 52 IU/L (33-138); ALT 66 IU/L (12-78); ANION GAP 11.6 (10.0-19.0); AST 143 IU/L (10-40); BLOOD UREA NITROGEN 27 mg/dL (6-24); CALCIUM 8.2 mg/dL (8.5-10.5); CHLORIDE 115 mMol/L (96-110); CO2 23 mMol/L (22-32); CREATININE 0.5 mg/dL (0.5-1.1); ESTIMATED GFR (MDRD EQUATION) > 60; POTASSIUM 3.6 mMol/L (3.7-5.1); TOTAL BILIRUBIN 0.8 mg/dL (0.0-1.5)
[2016-11-10 08:11] LABS: SODIUM 146 mMol/L (135-145)
[2016-11-10 08:14] LABS: BASOPHIL # 0.1 K/uL (0.0-0.2); BASOPHIL % 0.5 %; EOSINOPHIL % 0.4 %; HEMATOCRIT 35.8 % (30.0-46.0); HEMOGLOBIN 11.9 g/dL (10.0-15.0); IMMATURE GRANULOCYTE % 0.3 %; LYMPHOCYTE # 1.6 K/uL (0.8-4.0); LYMPHOCYTE % 15.6 %; MCH 31.1 pg (27.0-34.0); MCHC 33.2 gm/dL (32.0-36.5); MCV 93.5 fl (83.0-98.0); MONOCYTE # 0.6 K/uL (0.0-1.0); MONOCYTE % 5.7 %; NEUTROPHIL # (ANC) 7.8 K/uL (1.8-7.8); NEUTROPHIL % 77.5 %; NRBC % 0 /100WBC (0-0.00); PLATELET COUNT 115 K/uL (150-450); RBC 3.83 M/uL (3.00-5.00); RDW-CV 13.2 % (11.9-14.6)
--- NOTE | 2016-11-10 12:37 | NUR ---
Talked with , she tells me that she thinks that Janet will need to go to a SNF upon dismissal instead of going back to [facility]. Let her know that I would get in touch with family to talk with them about which facilities they might want me to look into. Also let her know that Brigid was supposed to come up this afternoon to see Janet. ANTWON to continue to follow and assist.
--- NOTE | 2016-11-10 18:40 | NUR ---
Significant Event: pt up in room with therapy 2 asst with walker. Norvasc given and lisinopril. Kphos po given., 3.8 level. Pt has family here with her. CT done of chest negative for PE. Pt alert/oriented but forgetful. Brigid came and evaluated pt today for poss. transfer back there. Dr Birdie oviedo in am, npo at 0000. Follow up:
--- NOTE | 2016-11-11 04:55 | NUR ---
Significant Event: Patient alert and oriented. Forgetful at times. Denies pain. Hypertensive with pressures 160-18s/80s. IV saline locked. NIHSS=3. NPO since midnight for ivelisse this am. Up with 2 assist. Toe-touch weight bearing to right leg. Pleasant and cooperative with cares. Follow up: continue
[2016-11-11 05:57] LABS: BASOPHIL # 0.1 K/uL (0.0-0.2); BASOPHIL % 0.6 %; EOSINOPHIL # 0.1 K/uL (0.0-0.5); EOSINOPHIL % 1.4 %; HEMATOCRIT 36.7 % (30.0-46.0); HEMOGLOBIN 12.5 g/dL (10.0-15.0); IMMATURE GRANULOCYTE % 0.4 %; LYMPHOCYTE # 1.7 K/uL (0.8-4.0); LYMPHOCYTE % 19.8 %; MCH 31.6 pg (27.0-34.0); MCHC 34.1 gm/dL (32.0-36.5); MCV 92.7 fl (83.0-98.0); MONOCYTE # 0.6 K/uL (0.0-1.0); MONOCYTE % 6.8 %; MPV 13.6 fl (9.4-12.4); NRBC % 0 /100WBC (0-0.00); PLATELET COUNT 103 K/uL (150-450); RBC 3.96 M/uL (3.00-5.00); RDW-CV 12.7 % (11.9-14.6); WBC 8.5 K/uL (4.0-11.0)
[2016-11-11 06:14] LABS: ALBUMIN 3.1 gm/dL (3.5-5.0); CALCIUM 8.5 mg/dL (8.5-10.5); CREATININE 0.5 mg/dL (0.5-1.1); TOTAL BILIRUBIN 0.9 mg/dL (0.0-1.5); TOTAL PROTEIN 6.2 g/dL (6.0-8.4)
--- NOTE | 2016-11-11 13:29 | NUR ---
Call to [facility] to talk with Lexie to see if they had come up yesterday to evaluate. She states she did come up and they feel like she would benifit from a short skilled stay before coming back to the [facility]. She says that family was in with Janet yesterday when she visited and she explained all of this to them. Family was going to follow up with MICA Alegre next week when she returned to talk about a bed hold. Let Lexie know I would look into SNF options for Janet and then once a facility had accepted, update them so they knew where she was placed. Lexie was fine with this. I did phone to all 4 SNFs in [facility]. [facility] is not taking any admission this week or next so they won't be able to accept. [facility] & [facility] both have openings and would accept a faxed referral if Janet and family in agreement with this. [facility] doesn't have any open this week, but might have some on Monday or after of next week. Will share this with Janet and family and see which facilities they are fine with me sending referrals to and then proceed from there. Updated to this and she was in agreement with the plan. CM to meet with pt and family at 1500 and will updated staff after that.
--- NOTE | 2016-11-11 18:45 | NUR ---
Significant Event: Patient A/O x 3. Forgetful. Up with 2A to pivot transfer. VSS. SBP 140-170's today. Adjusted Metoprolol dose. To call MD if SBP >170. Canceled lexiscan today per patient request. Dr. Saab and Dr. Nino aware. Very tired throughout the afternoon. aware. LFA PIV SL. Follow up: Continue as per plan of care. To be evaluated by Luciana. Possible [facility] placement needed.
--- NOTE | 2016-11-12 04:50 | NUR ---
Significant Event: Patient alert and oriented. Drowsy this evening. Large incontient bowel movement x 3. VSS on room air. Patient rested well this shift. Pleasant and cooperative with cares. Follow up:
[2016-11-12 04:54] LABS: BASOPHIL % 0.3 %; EOSINOPHIL # 0.1 K/uL (0.0-0.5); EOSINOPHIL % 0.8 %; HEMATOCRIT 37.3 % (30.0-46.0); HEMOGLOBIN 12.8 g/dL (10.0-15.0); IMMATURE GRANULOCYTE % 0.3 %; LYMPHOCYTE # 1.5 K/uL (0.8-4.0); LYMPHOCYTE % 16.8 %; MCH 31.7 pg (27.0-34.0); MCHC 34.3 gm/dL (32.0-36.5); MCV 92.3 fl (83.0-98.0); MONOCYTE # 0.7 K/uL (0.0-1.0); MPV 14.3 fl (9.4-12.4); NEUTROPHIL # (ANC) 6.6 K/uL (1.8-7.8); NEUTROPHIL % 73.8 %; NRBC % 0 /100WBC (0-0.00); PLATELET COUNT 115 K/uL (150-450); RBC 4.04 M/uL (3.00-5.00); RDW-CV 12.8 % (11.9-14.6); WBC 8.9 K/uL (4.0-11.0)
[2016-11-12 05:14] LABS: ALBUMIN 3.1 gm/dL (3.5-5.0); ANION GAP 11.4 (10.0-19.0); CALCIUM 8.7 mg/dL (8.5-10.5); CREATININE 0.5 mg/dL (0.5-1.1); POTASSIUM 4.4 mMol/L (3.7-5.1); TOTAL PROTEIN 6.4 g/dL (6.0-8.4)
[2016-11-12 05:16] LABS: TOTAL BILIRUBIN 1.1 mg/dL (0.0-1.5)
--- NOTE | 2016-11-12 11:04 | NUR ---
A-SCREENED D/T LOS HT: 63 IN. WT: 65.7 KG. BMI: 25.9 NO REPORT OF WT LOSS PRIOR TO ADMIT; APPETITE WAS GOOD PRIOR TO ADMIT LABS: NA 141, K+ 4.4, GLU 89, BUN 19, [employer]IST[employer] 0.5, ALB 3.1 MEDS: MIRALAX, PROTONIX, LIPITOR DIET RX: REGULAR. ONLY 5 MEALS HAVE BEEN RECORDED SINCE ADMIT. PO INTAKE OF THOSE HAVE BEEN 0-75%; AVG OF 27%. EST NUTR NEEDS: [id number] KCALS (25-30 KCALS/KG) 66-72 GM PROTEIN (1.0-1.1 GM/KG) 1 ML FLUID/KCAL D-AT NUTRITION RISK W/INADEQUATE ORAL INTAKE R/T ALTERED APPETITE AEB INTAKE RECORDS. I-START ENSURE ENLIVE QD AT [facility] M/E-GOAL: PO INTAKE >/=50% BY DISCHARGE 1)F/U PO INTAKE, SUPPLEMENT, AND POC IN 3-5 DAYS 2)ASSIST NEEDED
--- NOTE | 2016-11-12 16:42 | NUR ---
Significant Event: Patient A/O x 3. Up with 2 max assist to pivot transfer. Toe-touch weight bearing with right foot. Boot on when out of bed. VSS on RA. SBP improved today in mostly 140-150's. Orthostatics negative. Gave Tylenol this morning with A.M. meds in anticipation of pain with therapy, and patient has denied pain throughout the day. Stroke scale of 2 today with drift of both legs. No other neuro deficits noted. Oliguria. Only 200 ml out of rangel. Poor PO intake today. Slept most of the day. Follow up: Continue as per plan of care.
[2016-11-13 04:35] LABS: BASOPHIL % 0.5 %; EOSINOPHIL # 0.2 K/uL (0.0-0.5); EOSINOPHIL % 2.4 %; HEMATOCRIT 36.6 % (30.0-46.0); HEMOGLOBIN 12.4 g/dL (10.0-15.0); IMMATURE GRANULOCYTE % 0.4 %; LYMPHOCYTE # 1.5 K/uL (0.8-4.0); LYMPHOCYTE % 20.2 %; MCH 31.1 pg (27.0-34.0); MCHC 33.9 gm/dL (32.0-36.5); MCV 91.7 fl (83.0-98.0); MONOCYTE # 0.6 K/uL (0.0-1.0); MONOCYTE % 7.5 %; MPV 13.3 fl (9.4-12.4); NEUTROPHIL # (ANC) 5.2 K/uL (1.8-7.8); NRBC % 0 /100WBC (0-0.00); PLATELET COUNT 128 K/uL (150-450); RBC 3.99 M/uL (3.00-5.00); RDW-CV 12.6 % (11.9-14.6); WBC 7.6 K/uL (4.0-11.0)
[2016-11-13 04:49] LABS: ANION GAP 12.1 (10.0-19.0); CALCIUM 8.3 mg/dL (8.5-10.5); CREATININE 0.5 mg/dL (0.5-1.1); POTASSIUM 4.1 mMol/L (3.7-5.1)
[2016-11-13 04:50] LABS: TOTAL BILIRUBIN 0.7 mg/dL (0.0-1.5)
--- NOTE | 2016-11-13 07:22 | NUR ---
Significant Event: DENIES PAIN ALL NIGHT. RETURNED TO BED WITH 2 ASSIST. OSRIA PATENT WITH 300ML OF UO. REMAINS ON ROOM AIR. R) FOOT REMAINS WARM TO THE TOUCH WITH GOOD CAP REFILL. SLEEPING HARD ALL NIGHT. Follow up:
--- NOTE | 2016-11-13 15:52 | NUR ---
Significant Event:VSS.RA. HAS DENIED ANY PAIN THIS SHIFT. UP WITH 2 ASSIST+WALKER.TOE TOUCH WT BEARING TO RLE.A&OX3. FOLLOW COMMANDS APPROPRIATELY, HOWEVER VERY QUIET.VERY FEW WORDS.POOR APPETITE. Follow up:WILL CONTINUE TO MONITOR PER PLAN OF CARE.
--- NOTE | 2016-11-14 05:43 | NUR ---
Significant Event: REMAINS IN BED ALL NIGHT. TURNED FROM SIDE TO SIDE. PT DENIES PAIN UNLESS HER LEG IS BUMPED OR MOVED. R) FOOT REMAINS WARM TO THE TOUCH WITH 2+ EDEMA. REMAINS ON ROOM AIR. 775ML OF UO. NS SHUT OFF AFTER 24HRS. INCONT OF STOOL. Follow up: NEEDS NH PLACEMENT.
[2016-11-14 06:05] LABS: BASOPHIL % 0.4 %; EOSINOPHIL # 0.2 K/uL (0.0-0.5); EOSINOPHIL % 1.9 %; HEMATOCRIT 36.8 % (30.0-46.0); HEMOGLOBIN 12.4 g/dL (10.0-15.0); IMMATURE GRANULOCYTE # 0.1 K/uL (0.0-0.3); IMMATURE GRANULOCYTE % 0.6 %; LYMPHOCYTE # 1.5 K/uL (0.8-4.0); LYMPHOCYTE % 16.3 %; MCH 30.9 pg (27.0-34.0); MCHC 33.7 gm/dL (32.0-36.5); MCV 91.8 fl (83.0-98.0); MONOCYTE # 0.8 K/uL (0.0-1.0); MONOCYTE % 8.5 %; MPV 13.5 fl (9.4-12.4); NEUTROPHIL # (ANC) 6.5 K/uL (1.8-7.8); NEUTROPHIL % 72.3 %; NRBC % 0 /100WBC (0-0.00); PLATELET COUNT 142 K/uL (150-450); RBC 4.01 M/uL (3.00-5.00); RDW-CV 12.6 % (11.9-14.6)
[2016-11-14 06:13] LABS: ANION GAP 10.9 (10.0-19.0); CALCIUM 8.5 mg/dL (8.5-10.5); CREATININE 0.5 mg/dL (0.5-1.1); POTASSIUM 3.9 mMol/L (3.7-5.1); TOTAL BILIRUBIN 0.9 mg/dL (0.0-1.5); TOTAL PROTEIN 6.1 g/dL (6.0-8.4)
--- NOTE | 2016-11-14 13:31 | NUR ---
0950 Call to Otilia at [facility] to see if they were coming to look at today. She tells me that her and the DON should be up aroud 1100 to look at Janet, but she wasn't for sure if they could accpet today or if it would be tomorrow. Let her know that we were really planning on Janet being able to dismiss today so we would like for them to accept if they could. 0955 Call to Rebeca ([facility]) phone, it forwarded me to Kika . Left her a message to see if they were going to come up and look at Janet today for possible admission. No call back from her was ever received. 1050 Was up on PCU floor when I saw Telma with [facility] come by, she was here to look at Janet for possible admission. After meeting with Janet and her daughter, she tells me that they could accept Janet today if Janet and family were in agreement with this. Let her know I would call her after I talked with pt and family. 1145 Call to Otilia at [facility] to see if she had come up to see Janet yet, she tells me that they haven't and if they came later, they wouldn't be able to take until tomorrow. Let her know to not come up and see Janet and [facility] said they would take today and after talking with Janet, her daughter who was at bedside and her son via phone call, they were all in agreement with going to [facility]. Otilia was fine with this. I called back over to Telma to let her know that Janet and family were in agreement to come to them today. Telma says she will be up in a bit to do paperwork. Provided her with a copy of Tonny' insurance cards. Packet started, orders were done by and Telma took a copy of these to take backto SNF on her inital visit, ID screen was completed and placed in the packet. Daughter was going to go and get her mom some cloths to take to SNF. I updated and GRACIELA Nieto to the above information, both were fine with the plan. RN to RN number for report was given to GRACIELA Nieto to call in report. I updated Shania at [facility] to Janet going to [facility] today, asked that she pass this on to Sis NINO when she returns to work. Shania tells me that she will do this. CM to continue to follow and assist. Plan [facility] today at 1400.
--- NOTE | 2016-11-14 13:50 | NUR ---
Patient alert and oriented X 3. Vitals 127/58, HR 69, Temp 98.2, O2 94 room air, and respiration 16. Up with 2 assist, gait belt and walker. Cam boot to right foot and leg. TTWB only. Large loose bowel movement this shift, miralax held. 2+ edema to right foot. Slight redness to periarea. Hard of hearing. Pleasant and cooperative with cares.
== END 2016-11-14 14:20 | DRG 871 ==
LOC: GACC 07:24 → GPCU 10:53
PROVIDERS: Family Medicine; Internal Medicine; ADMIT Internal Medicine
DX: A41.9 Sepsis, unspecified organism (principal); G93.40 Encephalopathy, unspecified; I63.9 Cerebral infarction, unspecified; I21.4 Non-ST elevation (NSTEMI) myocardial infarction; N17.9 Acute kidney failure, unspecified; E87.2 Acidosis; S82.201A Unspecified fracture of shaft of right tibia, initial encounter for closed fracture; N39.0 Urinary tract infection, site not specified; D72.829 Elevated white blood cell count, unspecified; R65.20 Severe sepsis without septic shock; E78.5 Hyperlipidemia, unspecified; I10 Essential (primary) hypertension; F03.90 Unspecified dementia, unspecified severity, without behavioral disturbance, psychotic disturbance, mood disturbance, and anxiety; W18.30XA Fall on same level, unspecified, initial encounter; Y93.9 Activity, unspecified
CPT/HCPCS: A9270; C8924; C9113; J0696; J1644; J7030; J7040; J7050; Q9967

== ENCOUNTER → 2016-11-08 | Outpatient (CLI) | payer MEDICARE, OTHER ==
[~2016-11-08] MED LIST: HYDRODIURIL25 MG PO; KEFLEX500 MG PO; LIPITOR20 M1 PO; MILK OF MA400 MG/5 M PO; NORVASC5 MG PO; OYSTER SHELL C500 MG PO; PRESERVISION A1 EAC2 PO; PRINIVIL (ZESTR20 MG PO; TYLENOL325 MG PO; ULTRAM50 MG PO; VITAMIN D-32000 UNI1 PO; VITAMIN D1000 UNI1 PO
== END | disposition disaster alternative care site (69) ==
LOC: GAMB 07:01
DX: M54.5 Low back pain (principal); I10 Essential (primary) hypertension; I63.9 Cerebral infarction, unspecified; Z79.899 Other long term (current) drug therapy
CPT/HCPCS: A0425; A0429; J7030